=== PATIENT | female | born 1975 | race Two or more races ===

== ENCOUNTER 2025-08-14 21:37 | Inpatient (IN) | payer BC ==
[~2025-08-14] VITALS: Ht 162.6 cm; Wt 58.0 kg
--- NOTE | 2025-08-14 22:57 | ED.PDOC ---
GI ASSESSMENT HPI Comments 50-year-old female who came to ER for abdominal pain. Patient does have history of anxiety. After dinner earlier, she started complaining of burning epigastric abdominal pain associated with nausea and episodes of vomiting x3. Patient was given and her anxiety pills and Pepto-Bismol but offered no relief. Chief Complaint: Abdominal Pain Time Seen by MD: 22:57 Reviewed Notes: Nurses Notes Allergies: Coded Allergies: No Known Drug Allergy (Verified Allergy, Unknown, 08/14/25) Information Source: Patient Mode of Arrival: Ambulatory Timing: Hours Duration: Since onset Prehospital treatment: Treatment Quality: Burning Past Medical History PAST MEDICAL HISTORY: Anxiety Surgical History: Denies all surgeries TRUCKSMITH History: Denies all TRUCKSMITH Hx Family History Family History: Reviewed,noncontributory to illness Social History Smoker: Non-Smoker Alcohol: Denies ETOH Use Drugs: Denies Drug Use Lives In: Home Constitutional: denies: chills, diaphoresis, fatigue, fever, malaise, sweats, weakness, others EENTM: denies: blurred vision, double vision, ear bleeding, ear discharge, ear drainage, ear pain, ear ringing, eye pain, eye redness, hearing loss, mouth pain, mouth swelling, nasal discharge, nose bleeding, nose congestion, nose pain, photophobia, tearing, throat pain, throat swelling, voice changes, others Respiratory: denies: cough, hemoptysis, orthopnea, SOB at rest, shortness of breath, SOB with excertion, stridor, wheezing, others Cardiovascular: denies: chest pain, dizzy spells, diaphoresis, Dyspnea on exertion, edema, irregular heart beat, left arm pain, lightheadedness, palpitations, PND, syncope, others Gastrointestinal: reports: abdominal pain, nausea, vomiting; denies: abdomen distended, blood streaked bowels, constipated, diarrhea, dysphagia, difficulty swallowing, hematemesis, melena, poor appetite, poor fluid intake, rectal bleeding, rectal pain, others Genitourinary: denies: abnormal vagina bleeding, burning, dyspareunia, dysuria, flank pain, frequency, hematuria, incontinence, pain, , vagina discharge, urgency, others Neurological: denies: dizziness, fainting, headache, left sided numbness, left sided weakness, numbness, paresthesia, pre-existing deficit, right sided numbness, right sided weakness, seizure, speech problems, tingling, tremors, weakness, others Musculoskeletal: denies: back pain, gout, joint pain, joint swelling, muscle pain, muscle stiffness, neck pain, others Integumetry: denies: bruises, change in color, change in hair/nails, dryness, laceration, lesions, lumps, rash, wounds, others Allergic/Immunocompromised: denies: Difficulty Healing, Frequent Infections, Hives, Itching, others Hematologic/Lymphatic: denies: anemia, blood clots, easy bleeding, easy bruising, swollen glands, others Endocrine: denies: excessive hunger, excessive sweating, excessive thirst, excessive urination, flushing, intolerance to cold, intolerance to heat, unexplained weight gain, unexplained weight loss, others Psychiatric: reports: anxiety; denies: bipolar disorder, depression, hopeless, panic disorder, schizophrenia, sleepless, suicidal, others Physical Exam General Appearance: No Apparent Distress, Normal HEENT: Normal ENT Inspection, Pharynx Normal, TMs Normal Neck: Full Range of Motion, Non-Tender, Normal, Normal Inspection Respiratory: Chest Non-Tender, Lungs Clear, No Accessory Muscle Use, No Respiratory Distress, Normal Breath Sounds Cardiovascular: No Edema, No JVD, No Murmur, No Gallop, Normal Peripheral Pulses, Regular Rate/Rhythm Breast Exam: Deferred Gastrointestinal: No Organomegaly, Non Tender, No Pulsatile Mass, Normal Bowel Sounds, Soft Genitalia: Deferred Pelvic: Deferred Rectal: Deferred Extremities: No calf tenderness, Normal capillary refill, Normal inspection, Normal range of motion, Non-tender, No pedal edema Musculoskeletal : Apperance: Normal Neurologic: Alert, roll clamp operator II-XII nml as Tested, No Motor Deficits, Normal Affect, Normal Mood, No Sensory Deficits Cerebellar Function: Normal Reflexes: Normal Skin: Dry, Normal Color, Warm Lymphatic: No Adenopathy Was a procedure done? Was a procedure done?: No GI differential Dx Differential Diagnosis: Gastritis/PUD, Gastroenteritis, Electrolyte Imbalance, Food Poisoning X-Ray, Labs, Meds, VS Vital Signs Date Time Temp Pulse Resp B/P (MAP) Pulse Ox O2 Delivery O2 Flow Rate FiO2 08/14/25 21:39 98.4 72 18 145/58 97 98.4 Lab Test 08/14/25 23:07 08/14/25 23:01 Range/Units Urine Color Colorless Yellow Urine Clarity Turbid H Clear Urine pH 8.0 5.0-9.0 Urine Specific [place] 1.020 1.001-1.035 Urine Protein Negative Negative Urine Ketones Negative Negative Urine Blood Negative Negative /uL Urine Nitrite Negative Negative Urine Bilirubin Negative Negative Urine Urobilinogen Normal Negative mg/dL Urine Leukocyte Esterase Negative Negative /uL Urine RBC 4 0 - 4 /hpf Urine Microscopic WBC < 1 0-5 /HPF Urine Squamous Epithelial Cells Few <5 /hpf Urine Amorphous Crystals Few None Seen /hpf Urine Bacteria None seen None Seen /hpf Urine Glucose Normal Normal mg/dL White Blood Count 14.8 H 4.4-10.8 10^3/uL Red Blood Count 4.03 4.0-5.20 10^6/uL Hemoglobin 12.5 12.2-16.2 g/dL Hematocrit 36.7 36.0-46.0 % Mean Corpuscular Volume 91.1 80.0-100.0 fL Mean Corpuscular Hemoglobin 31.1 28.0-32.0 pg Mean Corpuscular Hemoglobin Concent 34.1 32.0-36.0 g/dL Red Cell Distribution Width 14.1 11.8-14.3 % Platelet Count 298 140-450 10^3/uL Mean Platelet Volume 9.1 6.9-10.8 fL Neutrophils (%) (Auto) 86.4 H 37.0-80.0 % Lymphocytes (%) (Auto) 8.5 L 10.0-50.0 % Monocytes (%) (Auto) 4.7 0.0-12.0 % Eosinophils (%) (Auto) 0.1 0.0-7.0 % Basophils (%) (Auto) 0.3 0.0-2.0 % Neutrophils # (Auto) 12.8 H 1.6-8.6 10 ^3/uL Lymphocytes # (Auto) 1.3 0.4-5.4 10 ^3/uL Monocytes # (Auto) 0.7 0-1.3 10 ^3/uL Eosinophils # (Auto) 0 0-0.8 10 ^3/uL Basophils # (Auto) 0 0-0.2 10 ^3/uL Nucleated Red Blood Cells 0.0 % Sodium Level 142 136-145 mmol/L Potassium Level 4.0 3.5-5.1 mmol/L Chloride Level 106 98-107 mmol/L Carbon Dioxide Level 27 20-31 mmol/L Anion Gap 9 5-15 Blood Urea Nitrogen 20 9-23 mg/dL Creatinine 0.86 0.550-1.02 mg/dL Glomerular Filtration Rate Calc 81 >90 mL/min BUN/Creatinine Ratio 23.3 H 10.0-20.0 Serum Glucose 125 H 74-106 mg/dL Calcium Level 9.3 8.7-10.4 mg/dL Total Bilirubin 0.3 0.2-1.0 mg/dL Aspartate Amino Transferase (AST) 27 13-40 U/L Alanine Aminotransferase (ALT) 43 H 7-40 U/L Alkaline Phosphatase 71 46-116 U/L Total Protein 7.0 5.7-8.2 g/dL Albumin 4.4 3.2-4.8 g/dL Lipase 31 12-53 U/L Time of 1ST Reevaluation: 22:55 Reevaluation 1ST: Unchanged Patient Education/Counseling: Diagnosis, Treatment Family Education/Counseling: No Family Present SEPSIS Sepsis Screen Date sepsis recognized/suspect: Aug 14, 2025 Time Sepsis recognized/suspect: 2141 Recent Procedure: No On Antibiotic Therapy: No Respiratory Rate >20: No Heart Rate >90: No Temp<36 C (96.8 F) or >38.3 C: No SBP <90 or MAP <65 mmHG: No New Acute Mental Status Change: No Is the patient on CPAP, BIPAP,: No Physician Orders Ct Ab Pel With Iv Con Only (08/14/25 22:54) Gallbladder (08/15/25 02:06) Vital Signs Date Time Temp Pulse Resp B/P (MAP) Pulse Ox O2 Delivery O2 Flow Rate FiO2 08/14/25 21:39 98.4 72 18 145/58 97 98.4 Laboratory Tests Test 08/14/25 23:01 White Blood Count 14.8 10^3/uL (4.4-10.8) H Departure 1 Departure Time of Disposition: 02:11 Impression: Primary Impression: Intractable abdominal pain Additional Impression: Cholecystitis Disposition: ADMITTED INPATIENT Admit to: Med Surg Condition: Guarded Discharged With: Self Comments 50 yo female with severe abd pain, CT shows gallstones. WBC elevated . patient continues to have pain. will admit for GB ultrasound and further workup Critical Care Note Critical Care Time?: No Stability Stability form required: No Heart Score Heart Score: Heart Score Response (Comments) Value History N/A 0 EKG N/A 0 Age N/A 0 Risk Factors N/A 0 Troponin N/A 0 Total 0 I personally scribed for BERRY KERNS MD ([email or web address]) on 08/14/25 at 22:57. Electronically submitted by Cole Cancino ([email or web address]). I personally scribed for BERRY KERNS MD ([email or web address]) on 08/14/25 at 23:02. Electronically submitted by Cole Cancino ([email or web address]). BERRY KERNS MD Aug 14, 2025 22:57
[2025-08-14 23:15] LABS: Hematocrit 36.7 % (36.0-46.0); Hemoglobin 12.5 g/dL (12.2-16.2); Mean Corpuscular Hemoglobin 31.1 pg (28.0-32.0); Mean Corpuscular Volume 91.1 fL (80.0-100.0); Nucleated Red Blood Cells % 0.0 %
[2025-08-14 23:34] LABS: Albumin 4.4 g/dL (3.2-4.8); Alkaline Phosphatase 71 U/L (46-116); Anion Gap 9 (5-15); BUN/Creatinine Ratio 23.3 (10.0-20.0); Bilirubin, Total 0.3 mg/dL (0.2-1.0); Blood Urea Nitrogen 20 mg/dL (9-23); Calcium 9.3 mg/dL (8.7-10.4); Carbon Dioxide 27 mmol/L (20-31); Chloride 106 mmol/L (98-107); Potassium 4.0 mmol/L (3.5-5.1); Sodium 142 mmol/L (136-145); Total Protein 7.0 g/dL (5.7-8.2)
[2025-08-14 23:35] LABS: Alanine Aminotransferase 43 U/L (7-40); Glucose 125 mg/dL (74-106)
[2025-08-14 23:50] LABS: Urine Amorphous Crystal FEW /hpf (None Seen); Urine Protein, UAD Negative (Negative)
[2025-08-15] VITALS (7 sets, daily range): BP systolic 107–129; BP diastolic 67–80; PULSE 68–97; RESP 15–20; TEMP 98–100.2; O2SAT 94–100
[2025-08-15 00:24] LABS: Lipase 31 U/L (12-53)
--- NOTE | 2025-08-15 01:41 | DVH ---
Exam: CT CT AB PEL WITH IV CON ONLY History: abd pain COMPARISON: None Technique: Multidetector spiral CT of the abdomen and pelvis was performed from lung bases to pubic symphysis. Intravenous contrast was administered during this examination. Portal venous imaging was obtained. Axial, coronal and sagittal multiplanar reformats were performed by the technologist on a separate workstation. Radiation Dose : 1. Abdomen/Pelvis: CTDIvol 11.53mGy, DLP 563.57 mGy*cm. CONTRAST: Type of contrast: Omnipaque 3 Contrast injected: 100 ml Findings: Lung Bases: No acute or significant lung base finding. Normal heart size. No pleural or pericardial effusion. Liver: The liver is normal in size. No focal lesions. Normal hepatic vascular enhancement. Gallbladder and Biliary Tree: Cholelithiasis noted without secondary findings of cholecystitis or biliary obstruction. Spleen: Unremarkable Pancreas: The pancreas is normal in appearance without focal lesions or abnormal enhancement. Adrenal Glands: Unremarkable Kidneys: No hydronephrosis. Bladder: Unremarkable Bowel: The stomach is grossly normal in appearance. Small bowel and colon are normal in caliber and distribution. Normal appendix is visualized in the right lower quadrant without findings of appendicitis. Ascites: Absent Lymphadenopathy: No mesenteric, retroperitoneal or periportal lymphadenopathy. Abdominal Wall and Mesentery: Unremarkable. Vasculature: The visualized abdominal aorta is normal in size and caliber. Abdominal and pelvic vessels demonstrate normal enhancement. Pelvic Organs: Unremarkable Musculoskeletal: No aggressive focal bony lesions, acute fractures or dislocation. IMPRESSION: Gallstones. Otherwise no clear cause for pain. Radiation optimization: All CT scans at this facility use at least one of these dose optimization techniques: automated exposure control mA and/or kV adjustment per patient size (includes targeted exams where dose is matched to clinical indication) or iterative reconstruction.
[2025-08-15] MEDS ORDERED: MORPHINE SULFATE INJ 2 MG/ml SYRG IV PRN ×2 (02:15→03:00)
[2025-08-15] MEDS ORDERED: DOCUSATE SOD 100 MG CAP PO PRN (02:15)
[2025-08-15] MEDS ORDERED: ONDANSETRON HCL 4 MG/2 ML VIAL IV PRN (02:15)
[2025-08-15] MEDS: PIPERACILLIN-TAZOB 3.375GM 100 ML IV ONE (02:15)
--- NOTE | 2025-08-15 02:52 | DVHHP2 ---
History of Present Illness Reason for Visit: Acute abdominal pain History of Present Illness The patient is a 50-year-old female with past medical history of anxiety who presented to [facility] ED with complaint of acute abdominal pain. Patient reports she has been experiencing burning epigastric abdominal pain, ass ociated with nausea, episodes of vomiting x3, self medicated with Pepto-Bismol with no relief, getting worse that prompted this visit. Patient was seen and evaluated in the ED, laboratory data shows WBC 14.8, platelets 298, sodium 142, potassium 4.0, BUN 20, creatinine 0.86, GFR 81, glucose 125, calcium 9.3, lipase 31, AST 27, ALT 43, blood pressure 145/58, heart rate 72, temperature 98.4 F, O2 saturation 97% on room air. Gallbladder ultrasound revealing cholelithiasis with mild gallbladder wall thickening and moderate pericholecystic fluid, negative sonographic Barba's sign, findings equivocal for acute cholecystitis. Please see medication orders section in the computer. On my assessment, at bedside, patient denied chest pain, no headache, dizziness, diaphoresis, shortness of breaths, no diarrhea, abdominal pain, nausea or vomiting at this moment, fever, no chills. Patient was admitted for further evaluation and medical management. Past Medical History Anxiety Past Surgical History Denies all surgeries Family History Reviewed, noncontributory to the management of this case. Past Social History The patient lives at home, denies smoking, alcohol or illicit drugs abuse. Review of Systems Constitutional: Yes: Weakness; No: Fever, Chills, Sweats, Malaise, Other Eyes: No: Pain, Vision change, Conjunctivae inflammation, Eyelid inflammation, Other, Redness ENT: No: Ear pain, Ear discharge, Nose pain, Nose discharge, Nose congestion, Mouth pain, Mouth swelling, Throat pain, Throat swelling, Other Respiratory: No: Cough, Dry, Shortness of breath, SOB with excertion, Wheezing, Hemoptysis, Pleuritic Pain, Sputum, Wheezing, Other Cardiovascular: No: Chest Pain, Palpitations, Orthopnea, Paroxysmal Noc. Dyspnea, Edema, Lt Headedness, Other Gastrointestinal: Nausea, Vomiting, Abdominal Pain; No: Diarrhea, Constipation, Melena, Hematochezia, Other Genitourinary: No Dysuria, No Frequency, No Incontinence, No Hematuria, No Retention, No Other Musculoskeletal: No: other, neck pain, shoulder pain, arm pain, back pain, hand pain, leg pain, foot pain Skin: No: Rash, Lesions, Jaundice, Bruising, Other Neurological: No: Weakness, Numbness, Incoordination, Change in speech, Confusion, Seizures, Other Allergies: Coded Allergies: No Known Drug Allergy (Verified Allergy, Unknown, 08/14/25) Medications Current Medications Medications Dose Ordered Sig/Krysta Route Start Time Stop Time Status Last Admin Dose Admin Ceftriaxone Sodium 50 ml @ 100 mls/hr DAILY@09 IV 08/15/25 09:00 UNV Metronidazole 100 ml @ 100 mls/hr Q8HR IV 08/15/25 06:00 Pantoprazole Sodium 40 mg DAILY IV 08/15/25 10:00 Sodium Chloride 10 ml Q8HR IV 08/15/25 06:00 Acetaminophen/ Hydrocodone Bitart 1 tab Q4HP PRN PO 08/15/25 02:15 Ondansetron HCl 4 mg Q4HP PRN IV 08/15/25 02:15 Docusate Sodium 100 mg BIDPRN PRN PO 08/15/25 02:15 Acetaminophen 650 mg Q6HP PRN PO 08/15/25 02:15 Morphine Sulfate 2 mg Q4HPRN PRN IV 08/15/25 02:15 Ceftriaxone Sodium 50 ml @ 100 mls/hr DAILY@ IV 08/16/25 09:00 Exam Vital Signs Vital Signs Date Time Temp Pulse Resp B/P (MAP) Pulse Ox O2 Delivery O2 Flow Rate FiO2 08/14/25 21:39 98.4 72 18 145/58 97 98.4 General Appearance: Alert, Oriented X3, Cooperative, No acute distress HEENT: Atraumatic, PERRLA, EOMI, Mucous membr. moist/pink Respiratory: Clear to auscultation, Normal air movement Cardiovascular: Regular rate, Normal S1, Normal S2, No murmurs Abdominal: Normal bowel sounds, Soft, No hepatospenomegaly, No masses, Other (Reports tenderness) Extremities: No clubbing, No cyanosis, No edema, Normal pulses, No tenderness/swelling Skin: No breakdown, No significant lesion Neuro: Normal speech, Normal tone, Sensation intact, Cranial nerves 3-12 NL, Reflexes 2+, Other (Generalized weakness) Psych/Mental Status: Mental status NL, Mood NL Labs/Xrays Labs Test 08/15/25 02:29 08/14/25 23:07 08/14/25 23:01 Range/Units Urine Color Colorless Yellow Urine Clarity Turbid H Clear Urine pH 8.0 5.0-9.0 Urine Specific [place] 1.020 1.001-1.035 Urine Protein Negative Negative Urine Ketones Negative Negative Urine Blood Negative Negative /uL Urine Nitrite Negative Negative Urine Bilirubin Negative Negative Urine Urobilinogen Normal Negative mg/dL Urine Leukocyte Esterase Negative Negative /uL Urine RBC 4 0 - 4 /hpf Urine Microscopic WBC < 1 0-5 /HPF Urine Squamous Epithelial Cells Few <5 /hpf Urine Amorphous Crystals Few None Seen /hpf Urine Bacteria None seen None Seen /hpf Urine Glucose Normal Normal mg/dL Eosinophils (%) (Auto) 0.1 0.0-7.0 % Eosinophils # (Auto) 0 0-0.8 10 ^3/uL Basophils # (Auto) 0 0-0.2 10 ^3/uL Nucleated Red Blood Cells 0.0 % Lipase 31 12-53 U/L PATIENT: SANTIAGO BETANCOURTACCT: [id number] UNIT: [id number] : 1975 LOC: ER ROOM / BED: / AGE / SEX: 50 / F ADM STATUS: REG ER SERVICE 53 ORDERING PHYSICIAN: BERRY KERNS MD PROCEDURE(s): ABPLIV - CT AB PEL WITH IV CON ONLY REASON: abd pain ORDER NUMBER(s): [id number], ACCESSION NUMBER(s): [id number] Exam: CT CT AB PEL WITH IV CON ONLY History: abd pain COMPARISON: None Technique: Multidetector spiral CT of the abdomen and pelvis was performed from lung bases to pubic symphysis. Intravenous contrast was administered during this examination. Portal venous imaging was obtained. Axial, coronal and sagittal multiplanar reformats were performed by the technologist on a separate workstation. Radiation Dose: 1. Abdomen/Pelvis: CTDIvol 11.53mGy, DLP 563.57 mGy*cm. CONTRAST: Type of contrast: Omnipaque 3 Contrast injected: 100 ml Findings: Lung Bases: No acute or significant lung base finding. Normal heart size. No pleural or pericardial effusion. Liver: The liver is normal in size. No focal lesions. Normal hepatic vascular enhancement. Gallbladder and Biliary Tree: Cholelithiasis noted without secondary findings of cholecystitis or biliary obstruction. Spleen: Unremarkable Pancreas: The pancreas is normal in appearance without focal lesions or abnormal enhancement. Adrenal Glands: Unremarkable Kidneys: No hydronephrosis. Bladder: Unremarkable Bowel: The stomach is grossly normal in appearance. Small bowel and colon are normal in caliber and distribution. Normal appendix is visualized in the right lower quadrant without findings of appendicitis. Ascites: Absent Lymphadenopathy: No mesenteric, retroperitoneal or periportal lymphadenopathy. Abdominal Wall and Mesentery: Unremarkable. Vasculature: The visualized abdominal aorta is normal in size and caliber. Abdominal and pelvic vessels demonstrate normal enhancement. Pelvic Organs: Unremarkable Musculoskeletal: No aggressive focal bony lesions, acute fractures or d islocation. IMPRESSION: Gallstones. Otherwise no clear cause for pain. ORDERING PHYSICIAN: BERRY KERNS MD PROCEDURE(s): GBUS - GALLBLADDER REASON: abd pain / gallstones ORDER NUMBER(s): [id number], ACCESSION NUMBER(s): [id number] INDICATION: abd pain / gallstones TECHNIQUE: Multiple real-time sonographic images were obtained of the right upper quadrant. COMPARISON: None FINDINGS: The liver demonstrates normal homogeneous echotexture without focal mass lesions. The liver measures 13.2 cm. Normal hepatopetal portal venous flow identified. No evidence of pleural effusion or abdominal ascites. There is no intrahepatic or extrahepatic ductal dilatation. The common duct measures 0.2 cm. The gallbladder is moderately distended and contains multiple mobile gallstones within the body. Mild gallbladder wall thickening, measuring up to 4 mm. Moderate pericholecystic fluid. Negative sonographic barba's sign. The right kidney measures 10.0 cm. The right kidney is normal in contour, size, and shape. The echogenicity is normal. There is no hydronephrosis. The pancreas is not well visualized due to overlying bowel gas. IMPRESSION: 1. Cholelithiasis with mild gallbladder wall thickening and moderate pericholecystic fluid. Negative sonographic Barba sign. Findings are equivocal for acute cholecystitis. these findings may be consistent with acute cholecystitis in the appropriate clinical setting. SEPSIS Sepsis Screen Date sepsis recognized/suspect: Aug 14, 2025 Time Sepsis recognized/suspect: 2141 Recent Procedure: No On Antibiotic Therapy: No Respiratory Rate >20: No Heart Rate >90: No Temp<36 C (96.8 F) or >38.3 C: No SBP <90 or MAP <65 mmHG: No New Acute Mental Status Change: No Is the patient on CPAP, BIPAP,: No Physician Orders Ct Ab Pel With Iv Con Only (08/14/25 22:54) Gallbladder (08/15/25 02:06) Piperacillin-Tazob 3.375gm (Zosyn 3.375g (08/15/25 02:15) Complete Blood Count (08/15/25 04:00) Comprehensive Metabolic Panel (08/15/25 04:00) Lactic Acid W/ Reflex Order (08/15/25 02:11) Metronidazole 500mg/100ml (Flagyl 500mg/ (08/15/25 06:00) * Surgical Consult (08/15/25 ) Hemoglobin A1c (08/15/25 02:11) Blood Culture (08/15/25 02:11) Pantoprazole (Protonix) (08/15/25 10:00) Allergies (08/15/25 02:11) Code Status (08/15/25 02:11) Sodium Chloride Lock (Saline Lock Ns) (08/15/25 06:00) Oxygen Per Hour (08/15/25 02:11) Hydrocodone-Acet 5/325mg Tab ([place] 5/32 (08/15/25 02:15) Ondansetron Hcl (Zofran) (08/15/25 02:15) Docusate Sodium Capsule (Colace Capsule) (08/15/25 02:15) Complete Blood Count (08/16/25 04:00) Comprehensive Metabolic Panel (08/16/25 04:00) Condition: Serious (08/15/25 02:11) Acetaminophen Tablet (Tylenol Tablet) (08/15/25 02:15) Clear Liq Diet (08/15/25 Breakfast) Bedrest With Bathroom Privileg (08/15/25 02:11) Morphine Sulfate Injection (08/15/25 02:15) Sequential Compression Device (08/15/25 ) Ceftriaxone 1gm/50ml (Rocephin) (08/16/25 09:00) Vital Signs Date Time Temp Pulse Resp B/P (MAP) Pulse Ox O2 Delivery O2 Flow Rate FiO2 08/14/25 21:39 98.4 72 18 145/58 97 98.4 Laboratory Tests Test 08/14/25 23:01 08/15/25 02:29 White Blood Count 14.8 10^3/uL (4.4-10.8) H Pending Lactic Acid Level Pending Assessment/Plan Assessment/Plan Acute abdominal pain Acute cholecystitis Leukocytosis, unspecified Generalized weakness Intractable nausea and vomiting Plan 1. Admit to med surge unit 2. Breathing treatment 3. Pain control management 4. IV antibiotic management 5. Management of fluids and electrolytes 6. Consultation for surgery team 7. Diagnostic test gallbladder ultrasound 8. DVT prophylaxis-on SCDs 9. Repeat labs CBC, CMP in a.m. 10. Continue with current medical management 11. Treatment plan discussed with patient and RN. Patient verbalized understanding. Plan discussed with: Patient, Spouse (), Other (RN) My Orders Orders - MANDY LEAL DNP Procedure Category Date Status Time Complete Blood Count LAB 08/15/25 In Process 04:00 Comprehensive LAB 08/15/25 In Process Metabolic Panel 04:00 Lactic Acid W/ Reflex LAB 08/15/25 In Process Order 02:11 Metronidazole PHA 08/15/25 In Process 500mg/100ml (Flagyl 06:00 * Surgical Consult CONS 08/15/25 Transmitted Hemoglobin A1c LAB 08/15/25 In Process 02:11 Blood Culture REGAN 08/15/25 In Process 02:11 Pantoprazole PHA 08/15/25 In Process (Protonix) 10:00 Allergies SALLY 08/15/25 In Process 02:11 Code Status CODE 08/15/25 Transmitted 02:11 Sodium Chloride Lock PHA 08/15/25 In Process (Saline Lock Ns) 06:00 Oxygen Per Hour RT 08/15/25 Transmitted 02:11 Hydrocodone-Acet PHA 08/15/25 In Process 5/325mg Tab ([place] 02:15 Ondansetron Hcl PHA 08/15/25 In Process (Zofran) 02:15 Docusate Sodium PHA 08/15/25 In Process Capsule (Colace 02:15 Complete Blood Count LAB 08/16/25 Verified 04:00 Comprehensive LAB 08/16/25 Verified Metabolic Panel 04:00 Condition: Serious SALLY 08/15/25 In Process 02:11 Acetaminophen Tablet PHA 08/15/25 In Process (Tylenol Tablet) 02:15 Clear Liq Diet DIET 08/15/25 Transmitted Breakfast Bedrest With Bathroom SALLY 08/15/25 In Process Privileg 02:11 Morphine Sulfate PHA 08/15/25 In Process Injection 02:15 Sequential SALLY 08/15/25 In Process Compression Device Ceftriaxone 1gm/50ml PHA 08/16/25 In Process (Rocephin) 09:00 Problem List: (1) Acute abdominal pain (2) Acute cholecystitis (3) Leukocytosis, unspecified (4) Generalized weakness (5) Intractable nausea and vomiting Date of Service: Aug 15, 2025 Billing Provider: MANDY LEAL DNP Common Visit Codes: [id number] INP/OBS CARE (HIGH) MANDY LEAL DNP Aug 15, 2025 02:52
[2025-08-15] MEDS ORDERED: NITROGLYCERIN 0.4 MG SL TAB SL PRN (03:00)
--- NOTE | 2025-08-15 03:14 | DVH ---
INDICATION: abd pain / gallstones TECHNIQUE: Multiple real-time sonographic images were obtained of the right upper quadrant. COMPARISON: None FINDINGS: The liver demonstrates normal homogeneous echotexture without focal mass lesions. The liver measures 13.2 cm. Normal hepatopetal portal venous flow identified. No evidence of pleural effusion or abdominal ascites. There is no intrahepatic or extrahepatic ductal dilatation. The common duct measures 0.2 cm. The gallbladder is moderately distended and contains multiple mobile gallstones within the body. Mild gallbladder wall thickening, measuring up to 4 mm. Moderate pericholecystic fluid. Negative sonographic barba's sign. The right kidney measures 10.0 cm. The right kidney is normal in contour, size, and shape. The echogenicity is normal. There is no hydronephrosis. The pancreas is not well visualized due to overlying bowel gas. IMPRESSION: 1. Cholelithiasis with mild gallbladder wall thickening and moderate pericholecystic fluid. Negative sonographic Barba sign. Findings are equivocal for acute cholecystitis. these findings may be consistent with acute cholecystitis in the appropriate clinical setting.
[2025-08-15 03:23] LABS: Hematocrit 38.1 % (36.0-46.0); Hemoglobin 12.8 g/dL (12.2-16.2); Mean Corpuscular Hemoglobin 30.6 pg (28.0-32.0); Mean Corpuscular Volume 91.2 fL (80.0-100.0); Nucleated Red Blood Cells % 0.0 %
[2025-08-15 03:32] LABS: Albumin 4.6 g/dL (3.2-4.8); Alkaline Phosphatase 71 U/L (46-116); Anion Gap 11 (5-15); BUN/Creatinine Ratio 26.9 (10.0-20.0); Blood Urea Nitrogen 18 mg/dL (9-23); Calcium 8.9 mg/dL (8.7-10.4); Carbon Dioxide 25 mmol/L (20-31); Chloride 105 mmol/L (98-107); Potassium 3.8 mmol/L (3.5-5.1); Sodium 141 mmol/L (136-145); Total Protein 7.1 g/dL (5.7-8.2)
[2025-08-15 03:33] LABS: Alanine Aminotransferase 40 U/L (7-40); Bilirubin, Total 0.4 mg/dL (0.2-1.0); Glucose 121 mg/dL (74-106)
[2025-08-15] MEDS: HYDROmorphone HCL 2 MG/ML VL/or syr IV ONE (05:57)
[2025-08-15] MEDS: ONDANSETRON HCL 4 MG/2 ML VIAL IV ONE (05:58)
[2025-08-15] MEDS: IOHEXOL 300 MG/ML 100ML BOTTLE IJ ONE (05:58)
[2025-08-15] MEDS: SODIUM CHLORIDE 0.9% 1,000 ML IVB ONE (06:00)
[2025-08-15] MEDS: SODIUM CHLOR 0.9% PF (SALINE LOCK) 10ML VIAL/SYR IV SCH (06:42)
[2025-08-15] MEDS ORDERED: GABA300T4 PO (07:33)
[2025-08-15] MEDS: PANTOPRAZOLE 40 MG/10 ML VIAL INJ IV SCH (10:16)
[2025-08-15 10:49] LABS: Hepatitis B Surface Antigen Negative (Negative); Hepatitis C Antibody Negative (Negative)
[2025-08-15] MEDS: ACETAMINOPHEN 325 MG TAB PO PRN (16:17)
--- NOTE | 2025-08-15 19:42 | DVHINCON2 ---
Date of service: Aug 15, 2025 History of Present Illness 50-year-old female admitted secondary to epigastric abdominal pain associated with nausea and vomiting. Past Medical History Anxiety disorder Past Surgical History Denies abdominal surgery Family History: Diabetes mellitus G8 FATHER FH: breast cancer G8 MOTHER Family History Mom and brother both had cholecystectomies Social History Denies alcohol, tobacco, IV drug use Allergies: Coded Allergies: No Known Drug Allergy (Verified Allergy, Unknown, 08/14/25) Home Meds Reported Medications Gabapentin (Once-Daily) (Gabapentin) 300 Mg Tab, 300 MG PO TID, TAB 08/15/25 Current Medications Current Medications Medications (Trade) Dose Ordered Sig/Krysta Route PRN Reason Start Time Stop Time Status Last Admin Ceftriaxone Sodium 50 ml @ 100 mls/hr DAILY@ IV 08/15/25 09:00 UNV Metronidazole 100 ml @ 100 mls/hr Q8HR IV 08/15/25 06:00 08/15/25 13:50 Pantoprazole Sodium (Protonix) 40 mg DAILY IV 08/15/25 10:00 08/15/25 10:16 Sodium Chloride (Saline Lock Ns) 10 ml Q8HR IV 08/15/25 06:00 08/15/25 13:53 Acetaminophen/ Hydrocodone Bitart ([place] 5/325MG Tab) 1 tab Q4HP PRN PO MODERATE PAIN (4-6 PAIN SCALE) 08/15/25 02:15 Ondansetron HCl (Zofran) 4 mg Q4HP PRN IV NAUSEA / VOMITING 08/15/25 02:15 Docusate Sodium (Colace Capsule) 100 mg BIDPRN PRN PO FOR CONSTIPATION 08/15/25 02:15 Acetaminophen (Tylenol Tablet) 650 mg Q6HP PRN PO PAIN SCALE 1-3 OR TEMP>100.4 08/15/25 02:15 08/15/25 16:17 Morphine Sulfate 2 mg Q4HPRN PRN IV SEVERE PAIN (7-10 PAIN SCALE) 08/15/25 02:15 Ceftriaxone Sodium 50 ml @ 100 mls/hr DAILY@09 IV 08/16/25 09:00 08/15/25 18:04 DC Nitroglycerin (Ntrostat Sublingual) 0.4 mg Q5MINP PRN SL FOR CHEST PAIN 08/15/25 03:00 Morphine Sulfate 2 mg Q30M PRN IV FOR CHEST PAIN 08/15/25 03:00 Piperacillin Sod/ Tazobactam Sod 100 ml @ 25 mls/hr Q8HR IV 08/15/25 22:00 Sodium Chloride 1,000 ml @ 75 mls/hr [id number] IV 08/15/25 18:15 Vital Signs Vital Signs Date Time Temp Pulse Resp B/P (MAP) Pulse Ox O2 Delivery O2 Flow Rate FiO2 08/15/25 17:00 99.7 87 18 129/80 (96) 96 99.7 08/15/25 08:00 Room Air* 0 21 Physical Exam GEN: Age-appropriate female in no acute distress. Alert. HEENT: Normocephalic atraumatic. Moist mucous membranes. Anicteric sclerae. CV: RRR Respiratory: CTAB ABD: Minimal epigastric tenderness to palpation without guarding or rebound. Nondistended. Abdominal ultrasound: Multiple mobile gallstones with mild gallbladder wall thickening. Moderate pericholecystic fluid. Labs/Diagnostic Data Labs Test 08/15/25 02:29 08/15/25 02:22 08/14/25 23:07 08/14/25 23:01 Range/Units White Blood Count 17.8 H 4.4-10.8 10^3/uL Red Blood Count 4.17 4.0-5.20 10^6/uL Hemoglobin 12.8 12.2-16.2 g/dL Hematocrit 38.1 36.0-46.0 % Mean Corpuscular Volume 91.2 80.0-100.0 fL Mean Corpuscular Hemoglobin 30.6 28.0-32.0 pg Mean Corpuscular Hemoglobin Concent 33.6 32.0-36.0 g/dL Red Cell Distribution Width 14.0 11.8-14.3 % Platelet Count 292 140-450 10^3/uL Mean Platelet Volume 9.4 6.9-10.8 fL Neutrophils (%) (Auto) 89.3 H 37.0-80.0 % Lymphocytes (%) (Auto) 5.8 L 10.0-50.0 % Monocytes (%) (Auto) 4.7 0.0-12.0 % Eosinophils (%) (Auto) 0.0 0.0-7.0 % Basophils (%) (Auto) 0.2 0.0-2.0 % Neutrophils # (Auto) 15.9 H 1.6-8.6 10 ^3/uL Lymphocytes # (Auto) 1.0 0.4-5.4 10 ^3/uL Monocytes # (Auto) 0.8 0-1.3 10 ^3/uL Eosinophils # (Auto) 0 0-0.8 10 ^3/uL Basophils # (Auto) 0 0-0.2 10 ^3/uL Nucleated Red Blood Cells 0.0 % Sodium Level 141 136-145 mmol/L Potassium Level 3.8 3.5-5.1 mmol/L Chloride Level 105 98-107 mmol/L Carbon Dioxide Level 25 20-31 mmol/L Anion Gap 11 5-15 Blood Urea Nitrogen 18 9-23 mg/dL Creatinine 0.67 0.550-1.02 mg/dL Glomerular Filtration Rate Calc 105 >90 mL/min BUN/Creatinine Ratio 26.9 H 10.0-20.0 Serum Glucose 121 H 74-106 mg/dL Hemoglobin A1c 5.4 <5.7 % A1C Lactic Acid Level 1.9 0.4-2.0 mmol/L Calcium Level 8.9 8.7-10.4 mg/dL Total Bilirubin 0.4 0.2-1.0 mg/dL Aspartate Amino Transferase (AST) 26 13-40 U/L Alanine Aminotransferase (ALT) 40 7-40 U/L Alkaline Phosphatase 71 46-116 U/L Total Protein 7.1 5.7-8.2 g/dL Albumin 4.6 3.2-4.8 g/dL Hepatitis B Surface Antigen Negative Negative Hepatitis C Antibody Negative Negative Urine Color Colorless Yellow Urine Clarity Turbid H Clear Urine pH 8.0 5.0-9.0 Urine Specific [place] 1.020 1.001-1.035 Urine Protein Negative Negative Urine Ketones Negative Negative Urine Blood Negative Negative /uL Urine Nitrite Negative Negative Urine Bilirubin Negative Negative Urine Urobilinogen Normal Negative mg/dL Urine Leukocyte Esterase Negative Negative /uL Urine RBC 4 0 - 4 /hpf Urine Microscopic WBC < 1 0-5 /HPF Urine Squamous Epithelial Cells Few <5 /hpf Urine Amorphous Crystals Few None Seen /hpf Urine Bacteria None seen None Seen /hpf Urine Glucose Normal Normal mg/dL Lipase 31 12-53 U/L Assessment 1. Cholecystitis Plan/Recommendation 1. Laparoscopic cholecystectomy possible open surgery Informed consent: The surgery and its risks including but not limited to infection, bleeding requiring possible blood transfusion with the risk of hepatitis or HIV infection, possible open surgery, possible cystic duct leak or retained common bile duct stone requiring further intervention such as an ERCP, possible perioperative [place] or stroke were explained to the patient. All questions were answered to her satisfaction. She expressed verbal understanding and wished to proceed with the surgery. Plan discussed with: Patient MICHAEL NAILS MD Aug 15, 2025 19:41
[2025-08-15] MEDS: PIPERACILLIN-TAZOB 3.375GM 100 ML IV SCH (22:47)
[2025-08-15] MEDS: SODIUM CHLORIDE 0.9% 1,000 ML IV SCH (22:48)
[2025-08-16] VITALS (8 sets, daily range): BP systolic 111–128; BP diastolic 70–84; PULSE 81–100; RESP 16–20; TEMP 97.8–99.3; O2SAT 93–97
--- NOTE | 2025-08-16 03:44 | ECG ---
[facility] Test Date: 2025-08-16 Test Time: 03:43:07 Pat Name: SANTIAGO MURILLO Department: Room: [facility] A Gender: F Snipper: ras : 1975 Requested By: MICHAEL NAILS Order Number: [id number] Reading MD: Lawson Rasmussen Measurements Intervals [place] Rate: 91 P: 49 [place]: 130 QRS: 42 QRSD: 91 T: 17 QT: 351 QTc: 432 Interpretive Statements Sinus rhythm Borderline T abnormalities, anterior leads Electronically Signed On 08-19-2025 9:49:04 PST by Lawson Rasmussen Please click the below link to view image of tracing.
--- NOTE | 2025-08-16 05:29 | DVH ---
CHEST RADIOGRAPH Indication: Preop Technique: Single frontal view of the chest was obtained COMPARISON: None FINDINGS: Lines and Tubes: None Lungs: Clear Pleura: No effusion. No pneumothorax. Cardiomediastinal contours: Unremarkable Bones: Unremarkable IMPRESSION: No acute disease.
[2025-08-16 06:08] LABS: Hematocrit 36.4 % (36.0-46.0); Hemoglobin 12.4 g/dL (12.2-16.2); Mean Corpuscular Hemoglobin 31.0 pg (28.0-32.0); Mean Corpuscular Volume 91.3 fL (80.0-100.0); Nucleated Red Blood Cells % 0.0 %
[2025-08-16 06:21] LABS: INR 1.06 (0.9-1.15); Partial Thromboplastin Time 31.4 SEC (24.5-34.5); Prothrombin Time 11.2 sec (9.3-11.8)
[2025-08-16 06:34] LABS: Albumin 3.9 g/dL (3.2-4.8); Alkaline Phosphatase 81 U/L (46-116); Anion Gap 10 (5-15); BUN/Creatinine Ratio 16.7 (10.0-20.0); Bilirubin, Total 1.0 mg/dL (0.2-1.0); Blood Urea Nitrogen 11 mg/dL (9-23); Carbon Dioxide 26 mmol/L (20-31); Chloride 105 mmol/L (98-107); Sodium 141 mmol/L (136-145); Total Protein 6.3 g/dL (5.7-8.2)
[2025-08-16 06:43] LABS: Alanine Aminotransferase 50 U/L (7-40); Calcium 8.3 mg/dL (8.7-10.4); Glucose 110 mg/dL (74-106); Potassium 3.4 mmol/L (3.5-5.1)
[2025-08-16] MEDS: ceFAZolin 2 GM/D5W50ml 50 ML IV ONE (08:29)
[2025-08-16] MEDS ORDERED: fentaNYL CITRATE 100 MCG/2 ML VL ONE ×2 (09:08→09:46)
[2025-08-16] MEDS ORDERED: MIDAZOLAM HCL 2MG/2ML 2ml VIAL (1mg/ml) ONE (09:08)
[2025-08-16] MEDS: LIDOCAINE W/ EPINEPHRINE 1% 20ML VIAL ONE (09:51)
--- NOTE | 2025-08-16 10:18 | DVHOP2 ---
Operative Report - 2 Report Details Date: 08/16/25 Preop Diagnosis: 1. Cholecystitis Postop Diagnosis: 1. Same Surgeon: Michael Leone MD Data Integration Architect: None Anesthesiologist: Alyse Reece CRNA Anesthesia: General, Local Consent: The surgery and its risks including but not limited to infection, bleeding requiring possible blood transfusion with the risk of hepatitis or HIV infection, possible open surgery, possible cystic duct leak or retained common bile duct stone requiring further intervention such as an ERCP, possible perioperative [place] or stroke were explained to the patient. All questions were answered to her satisfaction. She expressed verbal understanding and wished to proceed with the surgery. Complications: none Estimated Blood Loss: 30 mL Fluids: 1300 mL Name of Procedure Performed Laparoscopic cholecystectomy Procedure Details Procedure Details: After induction of general anesthesia, patient's abdomen was prepped and draped in standard surgical fashion. A small infraumbilical incision was made and this incision was taken through the abdominal wall down to the fascia which was opened sharply. Peritoneum was then bluntly divided gaining access to the intra-abdominal cavity. Interrupted 0 Vicryl sutures were placed through the fascial incision and using an open technique, Dara trocar was introduced and secured using the Vicryl sutures. Abdomen was insufflated to 15 mmHg and camera was inserted. Visual examination of the intestine under the fascial incision appeared normal without injury. Under direct visualization, a 5 mm bladeless trocar was placed in in the subxiphoid region and two additional 5 mm bladeless trocars were placed in the right upper quadrant all under direct visualization. Examination of the right upper quadrant revealed slightly inflamed and distended gallbladder. An endo needle was used to 1st decompress the gallbladder. Gallbladder was then grasped and retracted cephalad direction. Minimal dissection was performed to free up the neck of the gallbladder and this was then retracted laterally. Careful blunt dissection was performed to identify t he cystic duct which appeared normal in size. This was clipped and divided using Endoclips without complication. Cystic artery was located just next to the cystic duct and this was also clipped and divided using Endoclips without complication. Gallbladder was then removed from the liver bed using electrocautery. There was no bile or stone spillage during the maneuver. The gallbladder was then removed from the abdominal cavity using an endo pouch bag and sent off the surgical field. Abdomen was then re-insufflated. Hemostasis in the liver bed was achieved using electrocautery. Right upper quadrant was then well irrigated until fluid was clear. Ranjan hemostatic powder was sprayed onto the gallbladder fossa for additional hemostasis. Trocars were then removed under direct visualization as the abdomen was deflated. Additional interrupted 0 Vicryl sutures were placed through the infraumbilical fascial incision and the sutures were tied down closing off the infraumbilical fascia. Surgical sites were irrigated injected with 20 mL of 0.25% Marcaine with epinephrine. Skin incisions were closed using 4-0 Monocryl sutures in subcuticular fashion. Surgical sites were cleaned and dried and dressings were applied. Sponge, needle, instrument count at the end of the case were reported to be correct by the nursing staff. The patient tolerated procedure well and was awake, extubated and transferred to recovery in stable condition. Specimen: Gallbladder Condition Stable Disposition Still a Patient MICHAEL LEONE MD Aug 16, 2025 10:18
--- NOTE | 2025-08-16 12:40 | DVHPN2 ---
Reviewed: Care Plan, H&P, Labs, Medications, Previous Orders, Radiology Changes from previous H/P or p: No Changes General: Per HPI Eyes: No Pain, No Vision change, No Conjunctivae inflammation, No Eyelid inflammation, No Other, No Redness ENT: No Ear pain, No Ear discharge, No Nose pain, No Nose discharge, No Nose congestion, No Mouth pain, No Mouth swelling, No Throat pain, No Throat swelling, No Other Cardiovascular: No Chest Pain, No Palpitations, No Orthopnea, No Paroxysmal Noc. Dyspnea, No Edema, No Lt Headedness, No Other Respiratory: No Cough, No Dry, No Shortness of breath, No SOB with excertion, No Wheezing, No Hemoptysis, No Pleuritic Pain, No Sputum, No Other Gastrointestinal: Nausea, Vomiting, Abdominal Pain; No Diarrhea, No Constipation, No Melena, No Hematochezia, No Other Genitourinary: No Dysuria, No Frequency, No Incontinence, No Hematuria, No Retention, No Other Musculoskeletal: No other, No neck pain, No shoulder pain, No arm pain, No back pain, No hand pain, No leg pain, No foot pain Skin: No Rash, No Lesions, No Jaundice, No Bruising, No Other Objective Vitals Vital Signs Date Time Temp Pulse Resp B/P (MAP) Pulse Ox O2 Delivery O2 Flow Rate FiO2 08/16/25 11:20 90 14 120/79 (93) 97 08/16/25 11:20 Nasal Cannula 2.0 97 08/16/25 10:20 99.1 99.1 Intake/Output Intake and Output 08/16/25 07:00 Intake Total 650 ml Balance 650 ml Intake Oral 250 ml IV Total 400 ml # Voids 3 Medications Current Medications Medications Dose Ordered Sig/Krysta Route Start Time Stop Time Status Last Admin Dose Admin Ceftriaxone Sodium 50 ml @ 100 mls/hr DAILY@09 IV 08/15/25 09:00 UNV Metronidazole 100 ml @ 100 mls/hr Q8HR IV 08/15/25 06:00 08/16/25 05:10 100 MLS/HR Pantoprazole Sodium 40 mg DAILY IV 08/15/25 10:00 08/15/25 10:16 40 MG Sodium Chloride 10 ml Q8HR IV 08/15/25 06:00 08/16/25 05:15 10 ML Acetaminophen/ Hydrocodone Bitart 1 tab Q4HP PRN PO 08/15/25 02:15 Ondansetron HCl 4 mg Q4HP PRN IV 08/15/25 02:15 Docusate Sodium 100 mg BIDPRN PRN PO 08/15/25 02:15 Acetaminophen 650 mg Q6HP PRN PO 08/15/25 02:15 08/15/25 16:17 650 MG Morphine Sulfate 2 mg Q4HPRN PRN IV 08/15/25 02:15 Nitroglycerin 0.4 mg Q5MINP PRN SL 08/15/25 03:00 Morphine Sulfate 2 mg Q30M PRN IV 08/15/25 03:00 Piperacillin Sod/ Tazobactam Sod 100 ml @ 25 mls/hr Q8HR IV 08/15/25 22:00 08/16/25 06:33 25 MLS/HR Sodium Chloride 1,000 ml @ 75 mls/hr [id number] IV 08/15/25 18:15 08/15/25 22:48 75 MLS/HR Laboratory Results Laboratory Tests 08/16/25 04:48 Chemistry Test 08/16/25 04:48 Albumin 3.9 g/dL (3.2-4.8) Calcium Level 8.3 mg/dL (8.7-10.4) L Total Protein 6.3 g/dL (5.7-8.2) Coagulation Test 08/16/25 04:48 Prothrombin Time 11.2 sec (9.3-11.8) Prothrombin Time INR 1.06 (0.9-1.15) Activated Partial Thromboplast Time 31.4 SEC (24.5-34.5) LFT Test 08/16/25 04:48 Alanine Aminotransferase (ALT) 50 U/L (7-40) H Alkaline Phosphatase 81 U/L (46-116) Aspartate Amino Transferase (AST) 36 U/L (13-40) Total Bilirubin 1.0 mg/dL (0.2-1.0) Urinalysis Test 08/14/25 23:07 Urine Color Colorless (Yellow) Urine Clarity Turbid (Clear) H Urine pH 8.0 (5.0-9.0) Urine Specific [place] 1.020 (1.001-1.035) Urine Protein Negative (Negative) Urine Ketones Negative (Negative) Urine Blood Negative /uL (Negative) Urine Nitrite Negative (Negative) Urine Bilirubin Negative (Negative) Urine Urobilinogen Normal mg/dL (Negative) Urine Leukocyte Esterase Negative /uL (Negative) Urine RBC 4 /hpf (0 - 4) Urine Microscopic WBC < 1 /HPF (0-5) Urine Squamous Epithelial Cells Few /hpf (<5) Urine Amorphous Crystals Few /hpf (None Seen) Urine Bacteria None seen /hpf (None Seen) Urine Glucose Normal mg/dL (Normal) Microbiology Microbiology Date/Time Source Procedure Growth Status 08/15/25 02:31 Blood Blood Culture - Preliminary NO GROWTH AFTER 24 HOURS OF INCUBATION. Resulted Assessment/Plan Assessment/Plan The patient is a 50-year-old female with past medical history of anxiety who presented to [facility] ED with complaint of acute abdominal pain. Patient reports she has been experiencing burning epigastric abdominal pain, associated with nausea, episodes of vomiting x3, self medicated with Pepto- Bismol with no relief, getting worse that prompted this visit. Patient was seen and evaluated in the ED, laboratory data shows WBC 14.8, platelets 298, sodium 142, potassium 4.0, BUN 20, creatinine 0.86, GFR 81, glucose 125, calcium 9.3, lipase 31, AST 27, ALT 43, blood pressure 145/58, heart rate 72, temperature 98.4 F, O2 saturation 97% on room air. Gallbladder ultrasound revealing cholelithiasis with mild gallbladder wall thickening and moderate pericholecystic fluid, negative sonographic Barba's sign, findings equivocal for acute cholecystitis. Please see medication orders section in the computer. On my assessment, at bedside, patient denied chest pain, no headache, dizziness, diaphoresis, shortness of breaths, no diarrhea, abdominal pain, nausea or vomiting at this moment, fever, no chills. Patient was admitted for further evaluation and medical management. Acute abdominal pain Acute cholecystitis Leukocytosis, unspecified Generalized weakness Intractable nausea and vomiting advance diet per Gen Surg Plan discussed with: Patient Date of Service: Aug 16, 2025 Billing Provider: DINA KERR DO Common Visit Codes: [id number] INP/OBS CARE(HIGH) DINA KERR DO Aug 16, 2025 12:40
[2025-08-16] MEDS: HYDROcodone-ACET 5/325MG TAB PO PRN (19:49)
[2025-08-17 01:00] VITALS: BP 105/69; PULSE 84; RESP 16; TEMP 98.5; O2SAT 92
[2025-08-17 05:00] VITALS: BP 125/78; PULSE 73; RESP 16; TEMP 98.5; O2SAT 93
[2025-08-17 05:45] LABS: Hematocrit 34.7 % (36.0-46.0); Hemoglobin 11.7 g/dL (12.2-16.2); Mean Corpuscular Hemoglobin 30.9 pg (28.0-32.0); Mean Corpuscular Volume 91.6 fL (80.0-100.0); Nucleated Red Blood Cells % 0.0 %
[2025-08-17 06:02] LABS: Albumin 3.8 g/dL (3.2-4.8); Alkaline Phosphatase 81 U/L (46-116); Anion Gap 11 (5-15); BUN/Creatinine Ratio 15.1 (10.0-20.0); Bilirubin, Total 0.6 mg/dL (0.2-1.0); Blood Urea Nitrogen 11 mg/dL (9-23); Carbon Dioxide 26 mmol/L (20-31); Glucose 105 mg/dL (74-106); Potassium 3.6 mmol/L (3.5-5.1); Sodium 145 mmol/L (136-145); Total Protein 6.2 g/dL (5.7-8.2)
[2025-08-17 06:04] LABS: Alanine Aminotransferase 56 U/L (7-40); Calcium 8.6 mg/dL (8.7-10.4); Chloride 108 mmol/L (98-107)
[2025-08-17 09:00] VITALS: BP 116/76; PULSE 81; RESP 20; TEMP 98.9; O2SAT 92
--- NOTE | 2025-08-17 11:28 | MEDREC ---
[facility] ASP Intervention Section I [facility] ASP Intervention: Duplication of therapy (PLEASE CONSIDER D/C FLAGYL SINCE BOTH ZOSYN AND COVER FOR ANAEROBE ORGANISMS (DUPLICATE) ) ENOCH STUBBS PHARMACIST Aug 17, 2025 11:28
[2025-08-17 13:00] VITALS: BP 132/78; PULSE 76; RESP 20; TEMP 98.3; O2SAT 95
--- NOTE | 2025-08-17 14:08 | DVHPN2 ---
Progress Note - Dictate Date Seen: Aug 17, 2025 Medical Necessity Reason Pt with a Central, PICC or Fol: No Subjective E: no major events o/n. no complaints. vital signs Vital Sign Date Time Temp Pulse Resp B/P (MAP) Pulse Ox O2 Delivery O2 Flow Rate FiO2 08/17/25 09:00 98.9 81 20 116/76 (89) 92 98.9 08/17/25 08:00 Room Air* 0 21 Total Intake and Output 08/16/25 08/16/25 08/17/25 15:00 23:00 07:00 Intake Total 118 ml 663 ml 690 ml Output Total 500 ml Balance 118 ml 663 ml 190 ml medications Current Medications Medications Dose Ordered Sig/Krysta Route Start Time Stop Time Status Last Admin Dose Admin Ceftriaxone Sodium 50 ml @ 100 mls/hr DAILY@09 IV 08/15/25 09:00 UNV Metronidazole 100 ml @ 100 mls/hr Q8HR IV 08/15/25 06:00 08/17/25 05:08 100 MLS/HR Pantoprazole Sodium 40 mg DAILY IV 08/15/25 10:00 08/17/25 08:47 40 MG Sodium Chloride 10 ml Q8HR IV 08/15/25 06:00 08/17/25 05:08 10 ML Acetaminophen/ Hydrocodone Bitart 1 tab Q4HP PRN PO 08/15/25 02:15 08/17/25 13:17 1 TAB Ondansetron HCl 4 mg Q4HP PRN IV 08/15/25 02:15 Docusate Sodium 100 mg BIDPRN PRN PO 08/15/25 02:15 Acetaminophen 650 mg Q6HP PRN PO 08/15/25 02:15 08/15/25 16:17 650 MG Morphine Sulfate 2 mg Q4HPRN PRN IV 08/15/25 02:15 Nitroglycerin 0.4 mg Q5MINP PRN SL 08/15/25 03:00 Morphine Sulfate 2 mg Q30M PRN IV 08/15/25 03:00 Piperacillin Sod/ Tazobactam Sod 100 ml @ 25 mls/hr Q8HR IV 08/15/25 22:00 08/17/25 13:18 25 MLS/HR Sodium Chloride 1,000 ml @ 75 mls/hr [id number] IV 08/15/25 18:15 08/16/25 21:15 75 MLS/HR objective GEN: NAD ABD: surgical dressings clean and dry. laboratory and microbiology Laboratory Tests 08/17/25 04:19 Test 08/17/25 04:19 Range/Units Serum Glucose 105 74-106 mg/dL Assessment/Plan A: 1. status post laparoscopic cholecystectomy postop day one doing well P: 1. stable from surgery POV for DC home today. recommend 3 more days of oral abx (augmentin) 2. remove top bandages tomorrow. leave steristrips on. ok to shower and get incisions wet tomorrow 3. f/u in my clinic next week. call [phone] for f/u appt Plan discussed with: Patient MICHAEL NAILS MD Aug 17, 2025 14:08
[2025-08-17 17:00] VITALS: BP 126/79; PULSE 76; RESP 20; TEMP 98.3; O2SAT 95
[2025-08-17 21:00] VITALS: BP 141/86; PULSE 79; RESP 17; TEMP 98.6; O2SAT 96
--- NOTE | 2025-08-17 23:52 | DVHPN2 ---
Reviewed: Care Plan, H&P, Labs, Medications, Previous Orders, Radiology Changes from previous H/P or p: No Changes General: Per HPI Eyes: No Pain, No Vision change, No Conjunctivae inflammation, No Eyelid inflammation, No Other, No Redness ENT: No Ear pain, No Ear discharge, No Nose pain, No Nose discharge, No Nose congestion, No Mouth pain, No Mouth swelling, No Throat pain, No Throat swelling, No Other Cardiovascular: No Chest Pain, No Palpitations, No Orthopnea, No Paroxysmal Noc. Dyspnea, No Edema, No Lt Headedness, No Other Respiratory: No Cough, No Dry, No Shortness of breath, No SOB with excertion, No Wheezing, No Hemoptysis, No Pleuritic Pain, No Sputum, No Other Gastrointestinal: Nausea, Vomiting, Abdominal Pain; No Diarrhea, No Constipation, No Melena, No Hematochezia, No Other Genitourinary: No Dysuria, No Frequency, No Incontinence, No Hematuria, No Retention, No Other Musculoskeletal: No other, No neck pain, No shoulder pain, No arm pain, No back pain, No hand pain, No leg pain, No foot pain Skin: No Rash, No Lesions, No Jaundice, No Bruising, No Other Objective Vitals Vital Signs Date Time Temp Pulse Resp B/P (MAP) Pulse Ox O2 Delivery O2 Flow Rate FiO2 08/17/25 21:00 98.6 79 17 141/86 (104) 96 98.6 08/17/25 20:00 Room Air* 0 21 Intake/Output Intake and Output 08/17/25 07:00 Intake Total 1471 ml Output Total 500 ml Balance 971 ml Intake Oral 1071 ml IV Total 400 ml Output Urine Total 500 ml # Voids 2 Medications Current Medications Medications Dose Ordered Sig/Krysta Route Start Time Stop Time Status Last Admin Dose Admin Ceftriaxone Sodium 50 ml @ 100 mls/hr DAILY@09 IV 08/15/25 09:00 UNV Metronidazole 100 ml @ 100 mls/hr Q8HR IV 08/15/25 06:00 08/17/25 21:13 100 MLS/HR Pantoprazole Sodium 40 mg DAILY IV 08/15/25 10:00 08/17/25 08:47 40 MG Sodium Chloride 10 ml Q8HR IV 08/15/25 06:00 08/17/25 21:14 10 ML Acetaminophen/ Hydrocodone Bitart 1 tab Q4HP PRN PO 08/15/25 02:15 08/17/25 19:27 1 TAB Ondansetron HCl 4 mg Q4HP PRN IV 08/15/25 02:15 Docusate Sodium 100 mg BIDPRN PRN PO 08/15/25 02:15 Acetaminophen 650 mg Q6HP PRN PO 08/15/25 02:15 08/15/25 16:17 650 MG Morphine Sulfate 2 mg Q4HPRN PRN IV 08/15/25 02:15 Nitroglycerin 0.4 mg Q5MINP PRN SL 08/15/25 03:00 Morphine Sulfate 2 mg Q30M PRN IV 08/15/25 03:00 Piperacillin Sod/ Tazobactam Sod 100 ml @ 25 mls/hr Q8HR IV 08/15/25 22:00 08/17/25 22:12 25 MLS/HR Sodium Chloride 1,000 ml @ 75 mls/hr [id number] IV 08/15/25 18:15 08/16/25 21:15 75 MLS/HR Laboratory Results Laboratory Tests 08/17/25 04:19 Chemistry Test 08/17/25 04:19 Albumin 3.8 g/dL (3.2-4.8) Calcium Level 8.6 mg/dL (8.7-10.4) L Total Protein 6.2 g/dL (5.7-8.2) LFT Test 08/17/25 04:19 Alanine Aminotransferase (ALT) 56 U/L (7-40) H Alkaline Phosphatase 81 U/L (46-116) Aspartate Amino Transferase (AST) 34 U/L (13-40) Total Bilirubin 0.6 mg/dL (0.2-1.0) Urinalysis Test 08/14/25 23:07 Urine Color Colorless (Yellow) Urine Clarity Turbid (Clear) H Urine pH 8.0 (5.0-9.0) Urine Specific [place] 1.020 (1.001-1.035) Urine Protein Negative (Negative) Urine Ketones Negative (Negative) Urine Blood Negative /uL (Negative) Urine Nitrite Negative (Negative) Urine Bilirubin Negative (Negative) Urine Urobilinogen Normal mg/dL (Negative) Urine Leukocyte Esterase Negative /uL (Negative) Urine RBC 4 /hpf (0 - 4) Urine Microscopic WBC < 1 /HPF (0-5) Urine Squamous Epithelial Cells Few /hpf (<5) Urine Amorphous Crystals Few /hpf (None Seen) Urine Bacteria None seen /hpf (None Seen) Urine Glucose Normal mg/dL (Normal) Microbiology Microbiology Date/Time Source Procedure Growth Status 08/15/25 02:31 Blood Blood Culture - Preliminary NO GROWTH AFTER 48 HOURS OF INCUBATION. Resulted Labs and/or images reviewed: Labs reviewed by me, Image(s) reviewed by me Assessment/Plan Assessment/Plan The patient is a 50-year-old female with past medical history of anxiety who presented to [facility] ED with complaint of acute abdominal pain. Patient reports she has been experiencing burning epigastric abdominal pain, associated with nausea, episodes of vomiting x3, self medicated with Pepto- Bismol with no relief, getting worse that prompted this visit. Patient was seen and evaluated in the ED, laboratory data shows WBC 14.8, platelets 298, sodium 142, potassium 4.0, BUN 20, creatinine 0.86, GFR 81, glucose 125, calcium 9.3, lipase 31, AST 27, ALT 43, blood pressure 145/58, heart rate 72, temperature 98.4 F, O2 saturation 97% on room air. Gallbladder ultrasound revealing cholelithiasis with mild gallbladder wall thickening and moderate pericholecystic fluid, negative sonographic Barba's sign, findings equivocal for acute cholecystitis. Please see medication orders section in the computer. On my assessment, at bedside, patient denied chest pain, no headache, dizziness, diaphoresis, shortness of breaths, no diarrhea, abdominal pain, nausea or vomiting at this moment, fever, no chills. Patient was admitted for further evaluation and medical management. Acute abdominal pain Acute cholecystitis Leukocytosis, unspecified Generalized weakness Intractable nausea and vomiting advance diet per Gen Surg 08/17/35 improving much more today, tolerated diet well and has BM Plan discussed with: Patient Date of Service: Aug 17, 2025 Billing Provider: DINA KERR DO Common Visit Codes: [id number] INP/OBS CARE(HIGH) DINA KERR DO Aug 17, 2025 23:52
[2025-08-18 00:52] VITALS: BP 118/77; PULSE 65; RESP 18; TEMP 98; O2SAT 94
[2025-08-18 04:42] VITALS: BP 138/87; PULSE 79; RESP 17; TEMP 98.2; O2SAT 93
[2025-08-18 08:00] VITALS: PULSE 73; RESP 16; O2SAT 95
[2025-08-18 09:00] VITALS: BP 132/72; PULSE 73; RESP 16; TEMP 97.9; O2SAT 95
[2025-08-18] MEDS ORDERED: AUG875T PO (11:51)
[2025-08-18] MEDS ORDERED: AMOX500T86 PO (12:06)
--- NOTE | 2025-08-18 12:11 | DVHDS2 ---
Discharge Summary Date of Admission Aug 15, 2025 at 02:47 Date of Discharge: Aug 18, 2025 Labs/Diagnostic Data: Laboratory Results Test 08/17/25 04:19 08/16/25 04:48 08/15/25 02:29 08/15/25 02:22 White Blood Count 13.1 10^3/uL (4.4-10.8) Red Blood Count 3.80 10^6/uL (4.0-5.20) Hemoglobin 11.7 g/dL (12.2-16.2) Hematocrit 34.7 % (36.0-46.0) Mean Corpuscular Volume 91.6 fL (80.0-100.0) Mean Corpuscular Hemoglobin 30.9 pg (28.0-32.0) Mean Corpuscular Hemoglobin Concent 33.7 g/dL (32.0-36.0) Red Cell Distribution Width 14.1 % (11.8-14.3) Platelet Count 268 10^3/uL (140-450) Mean Platelet Volume 9.4 fL (6.9-10.8) Neutrophils (%) (Auto) 85.6 % (37.0-80.0) Lymphocytes (%) (Auto) 9.0 % (10.0-50.0) Monocytes (%) (Auto) 5.3 % (0.0-12.0) Eosinophils (%) (Auto) 0.0 % (0.0-7.0) Basophils (%) (Auto) 0.1 % (0.0-2.0) Neutrophils # (Auto) 11.2 10 ^3/uL (1.6-8.6) Lymphocytes # (Auto) 1.2 10 ^3/uL (0.4-5.4) Monocytes # (Auto) 0.7 10 ^3/uL (0-1.3) Eosinophils # (Auto) 0 10 ^3/uL (0-0.8) Basophils # (Auto) 0 10 ^3/uL (0-0.2) Nucleated Red Blood Cells 0.0 % Sodium Level 145 mmol/L (136-145) Potassium Level 3.6 mmol/L (3.5-5.1) Chloride Level 108 mmol/L (98-107) Carbon Dioxide Level 26 mmol/L (20-31) Anion Gap 11 (5-15) Blood Urea Nitrogen 11 mg/dL (9-23) Creatinine 0.73 mg/dL (0.550-1.02) Glomerular Filtration Rate Calc 99 mL/min (>90) BUN/Creatinine Ratio 15.1 (10.0-20.0) Serum Glucose 105 mg/dL (74-106) Calcium Level 8.6 mg/dL (8.7-10.4) Total Bilirubin 0.6 mg/dL (0.2-1.0) Aspartate Amino Transferase (AST) 34 U/L (13-40) Alanine Aminotransferase (ALT) 56 U/L (7-40) Alkaline Phosphatase 81 U/L (46-116) Total Protein 6.2 g/dL (5.7-8.2) Albumin 3.8 g/dL (3.2-4.8) Prothrombin Time 11.2 sec (9.3-11.8) Prothrombin Time INR 1.06 (0.9-1.15) Activated Partial Thromboplast Time 31.4 SEC (24.5-34.5) Hemoglobin A1c 5.4 % A1C (<5.7) Lactic Acid Level 1.9 mmol/L (0.4-2.0) Hepatitis B Surface Antigen Negative (Negative) Hepatitis C Antibody Negative (Negative) Test 08/14/25 23:07 08/14/25 23:01 Urine Color Colorless (Yellow) Urine Clarity Turbid (Clear) Urine pH 8.0 (5.0-9.0) Urine Specific [place] 1.020 (1.001-1.035) Urine Protein Negative (Negative) Urine Ketones Negative (Negative) Urine Blood Negative /uL (Negative) Urine Nitrite Negative (Negative) Urine Bilirubin Negative (Negative) Urine Urobilinogen Normal mg/dL (Negative) Urine Leukocyte Esterase Negative /uL (Negative) Urine RBC 4 /hpf (0 - 4) Urine Microscopic WBC < 1 /HPF (0-5) Urine Squamous Epithelial Cells Few /hpf (<5) Urine Amorphous Crystals Few /hpf (None Seen) Urine Bacteria None seen /hpf (None Seen) Urine Glucose Normal mg/dL (Normal) Lipase 31 U/L (12-53) Other Laboratory Tests 08/17/25 04:19 Brief Hx & Hospital Course: The patient is a 50-year-old female with past medical history of anxiety who presented to [facility] ED with complaint of acute abdominal pain. Patient reports she has been experiencing burning epigastric abdominal pain, associated with nausea, episodes of vomiting x3, self medicated with Pepto- Bismol with no relief, getting worse that prompted this visit. Patient was seen and evaluated in the ED, laboratory data shows WBC 14.8, platelets 298, sodium 142, potassium 4.0, BUN 20, creatinine 0.86, GFR 81, glucose 125, calcium 9.3, lipase 31, AST 27, ALT 43, blood pressure 145/58, heart rate 72, temperature 98.4 F, O2 saturation 97% on room air. Gallbladder ultrasound revealing cholelithiasis with mild gallbladder wall thickening and moderate pericholecystic fluid, negative sonographic Barba's sign, findings equivocal for acute cholecystitis. Please see medication orders section in the computer. On my assessment, at bedside, patient denied chest pain, no headache, dizziness, diaphoresis, shortness of breaths, no diarrhea, abdominal pain, nausea or vomiting at this moment, fever, no chills. Patient was admitted for further evaluation and medical management. Acute abdominal pain Acute cholecystitis Leukocytosis, unspecified Generalized weakness Intractable nausea and vomiting s/p lap berenice advance diet per Gen Surg 08/17/35 improving much more today, tolerated diet well and has BM discharged to home Condition at Discharge: Fair Final Diagnosis/Problems List acute abd pain, Discharge Disposition: Home Discharge Instruct/Medications Diet: Cardiac 2g Na,low cholest Activity: No Restrictions, As Tolerated Scheduled Amoxicillin & Pot Clavulanate (Augmentin Tablet), 875 MG PO BID Amoxicillin & Pot Clavulanate (Augmentin), 1 TAB PO BID Gabapentin (Once-Daily) (Gabapentin), 300 MG PO TID, (Reported) Discharge Statement: "Patient was advised to return to the ER or call 911 if any headaches, dizziness, shortness of breath, chest pain, abdominal pain, bleeding, fevers, or worsening of medical condition. Patient was counseled about treatment plan, medications, possible side effects, patientverbalized understanding. All questions were answered to the best of my ability. This discharge took greater then 30 minutes in planning, reviewing documentation, counseling the patient, and discussing with other team members." ASSESSMENT ASSESSMENT Assessment acute abd pain, Date of Service: Aug 18, 2025 Billing Provider: DINA KERR DO Common Visit Codes: 61649-WMG/OBS DISCH DAY >30min DINA KERR DO Aug 18, 2025 12:11
== END 2025-08-18 12:15 | disposition home or self-care (01) | DRG 419 ==
LOC: ER 21:37 → OVERFLOW 08-15 02:47 → WEST WING 08-15 06:10
PROVIDERS: ADMIT Hospitalist; ATTEND Hospitalist
PROC: 0FT44ZZ Resection of Gallbladder, Percutaneous Endoscopic Approach (ICD-10-PCS; principal; 2025-08-16 09:08)
DX: K80.00 Calculus of gallbladder with acute cholecystitis without obstruction (principal); D72.829 Elevated white blood cell count, unspecified; F41.9 Anxiety disorder, unspecified; Z80.3 Family history of malignant neoplasm of breast; Z83.3 Family history of diabetes mellitus; Z90.49 Acquired absence of other specified parts of digestive tract; Z79.899 Other long term (current) drug therapy
CPT/HCPCS: 36415; 71045; 74177; 76705; 80053; 81001; 83036; 83605; 83690; 85025; 85610; 85730; 86803; 86850; 86900; 86901; 87040; 87340; 93005; 96365; G0378; J2250; J2405; J2470; J2543; J3490